=== PATIENT | male | born 1975 | race African-American/Black ===

== ENCOUNTER 2017-03-03 17:24 | Emergency (ER) | payer BC ==
[2017-03-03 17:27] VITALS: BP 156/93; BMI 27.3
[2017-03-03] MEDS ORDERED: XYLOCAINE 1 % (PLAIN) ONE (17:43)
--- NOTE | 2017-03-03 17:52 | DR.GENAD ---
HPI - PCP Primary Care Physician: ERA - Complaint/Symptoms Chief Complaint Doctors Comments: Agree with statement Chief Complaint:: PT C/O RT HAND 4TH DIGIT FINGER INFECTION AND PAIN. PT STATES IT HAS BEEN LIKE THIS FOR TWO DAYS. - Source History Provided: Patient - Mode of Arrival Mode of Arrival: Ambulatory - Timing Onset of Chief Complaint: 03/01/17 PMH - PMH Past Medical History: No Past Surgical History: Yes Surgical History: Abdominal Surgery - Family History History of Family Medical Conditions: Yes Family Medical History: Hypertension - Social History Does patient currently use any type of tobacco product: Yes Have you used tobacco products in the last 12 months: Yes Type of Tobacco Use: Cigarettes Does any household member use tobacco: Yes Alcohol Use: None Do you use any recreational Drugs:: No Lives With: Family Lives Where: Home - infectious screening In the last 2 months have you had wt loss of >10#?: NO Have you had fever, night sweats or hemotysis?: No Have you traveled outside the country in the last 6 months?: No Isolation: Standard ROS - Review of Systems Eyes: No Symptoms Reported ENTM: No Symptoms Reported Respiratoy: No Symptoms Reported Cardiovascular: No Symptoms Reported Gastrointestinal/Abdominal: No Symptoms Reported Genitourinary: No Symptoms Reported Neurological: No Symptoms Reported Musculoskeletal: Other (right hand 4th digit tender swollen) Integumentary: No Symptoms Reported Hematologic/Lymphatic: No Symptoms Reported Endocrine: No Symptoms Reported Psychiatric: No Symptoms Reported All Other Systems: Reviewed and Negative PE - Vital Signs Vitals: Temperature 98.2 F Pulse Rate 105 Respiratory Rate 20 Blood Pressure [Right Arm] 150/92 Blood Pressure 156/93 O2 Sat by Pulse Oximetry 96 - General Limitations: No Limitations General Appearance: Alert - Head Head Exam: Normal Inspection - Eyes Eye exam: Normal Appearance, PERRL, EOMI - ENT ENT Exam: Normal Exam External Ear Exam: Normal External Inspection TM/Canal Exam: Bilateral Normal Nose Exam: Normal Nose Exam Mouth Exam: Normal Inspection Throat Exam: Normal Inspection - Neck Neck Exam: Normal Inspection - Chest Chest Inspection: Normal Inspection - Respiratory Respiratory Exam: Normal Lung Sounds Bilat Respiratory Exam: Bilateral Clear to Auscultation - Cardiovascular Cardiovascular Exam: Regular Rate, Normal Rhythm - Abdominal Exam Abdominal Exam: Normal Inspection, Normal Bowel Sounds Abdominal Tenderness: negative: RUQ, RLQ, LUQ, LLQ, Epigastrium, Suprapubic, Diffuse, Mild, Moderate, Severe, Other - Extremities Extremities Exam: Other (left hand 4th digit with swelling of the distle DIP joing, tender fluctuant) - Back Back Exam: Normal Inspection - Neurologic Neurological Exam: Alert, Oriented X3, CN II-XII Intact - Psychiatric Psychiatric Exam: Normal Affect, Normal Mood - Skin Skin Exam: Warm, Dry, Intact Course - Treatment Treatment: I&D 4th digit obtaine ~2cc pus - Reevaluation 1st: Improved - Diagnosis Discharge Problem: Perionychia of finger Qualifiers: Laterality: right Qualified Code(s): L03.011 - Cellulitis of right finger - Discharge Plan Condition: Stable - Follow ups/Referrals Follow ups/Referrals: Clayton GIRARD [Primary Care Provider] - 3 days - Instructions
== END 2017-03-03 18:21 | disposition home or self-care (01) ==
LOC: ER 17:29
PROC: 0P9 Upper Bones, Drainage (ICD-10-PCS; principal; 2017-03-03)
DX: L03.011 Cellulitis of right finger (principal)
CPT/HCPCS: 10060; 99282; J2001

== ENCOUNTER → 2017-07-26 | Outpatient (CLI) | payer BC ==
--- NOTE | 2017-07-29 10:37 | RAD ---
HISTORY: Back pain Study: Lumbar spine series Comparison: none Findings: There is mild disc space narrowing throughout. There is moderate scoliotic curvature, convex to the l eft. The pedicles are intact. There are no pars defects seen. The bones are osteopenic. There surgica l clips along the left pelvis. IMPRESSION: Mild degenerative disc changes throughout and moderate scoliosis with no acute abnormality seen. Reported By:
== END | disposition home or self-care (01) ==
LOC: RAD 13:34
PROVIDERS: ATTEND Internal Medicine
DX: M54.5 Low back pain (principal); M51.36 Other intervertebral disc degeneration, lumbar region; M41.86 Other forms of scoliosis, lumbar region
CPT/HCPCS: 72110

== ENCOUNTER 2017-09-19 17:26 | Emergency (ER) | payer BC ==
[2017-09-19 17:46] VITALS: BMI 26.6
--- NOTE | 2017-09-19 18:17 | DR.CP ---
HPI - Time Seen Time seen: 17:49 - PCP Primary Care Physician: NFD - Complaint Chief Complaint Doctor Comments: History as stated by nurse. Patient in his usual state of health, close friend last week he was 43 years of age. Patient denies history of heart disease. He has hypertension but takes lisinopril infrequently. He smokes 0.5ppd.. Chief Complaint:: PT STATES " I HAD A FRIEND OF A HEART ATTACK AND I WANT TO BE CHECKED OUT".. PT C/O ABOUT ONE AND HALF HOURS AGO HE STARTED HAVING CHEST PAINS AND THAT HIS DAD HAS HAD STENTS PT DENIES ANY CARDIAC HX, OR STRESSORS". - Source History Provided: Patient - Mode of Arrival Mode of Arrival: Ambulatory - Timing Onset of Chief Complaint: 09/19/17 - Location Chest Pain Radiation Location: Left Arm, Left Shoulder - Associated Signs and Symptoms Associated Signs and Symptoms: Shortness of Breath PMH - PMH Past Medical History: No Past Medical History: Hypertension Past Surgical History: No Surgical History: Abdominal Surgery - Family History History of Family Medical Conditions: Yes Family Medical History: Hypertension Family Medical History Comment: CARDIAC STENTS ... - Social History Does patient currently use any type of tobacco product: Yes Have you used tobacco products in the last 12 months: Yes Type of Tobacco Use: Cigarettes How many years tobacco product used: 10 Does any household member use tobacco: No Alcohol Use: None Do you use any recreational Drugs:: No Lives With: Family Lives Where: Home - infectious screening In the last 2 months have you had wt loss of >10#?: NO Have you had fever, night sweats or hemotysis?: No Have you traveled outside the country in the last 6 months?: No Isolation: Standard ROS - Review of Systems Eyes: No Symptoms Reported ENTM: No Symptoms Reported Respiratoy: No Symptoms Reported Cardiovascular: No Symptoms Reported Gastrointestinal/Abdominal: No Symptoms Reported Genitourinary: No Symptoms Reported Neurological: No Symptoms Reported Musculoskeletal: See HPI Integumentary: No Symptoms Reported Hematologic/Lymphatic: No Symptoms Reported Endocrine: No Symptoms Reported Psychiatric: No Symptoms Reported All Other Systems: Reviewed and Negative PE - Vitals Vitals: Temperature 98.0 F Pulse Rate [Left Brachial] 73 Pulse Rate 98 Respiratory Rate 18 Blood Pressure [Right Arm] 145/101 Blood Pressure 156/100 O2 Sat by Pulse Oximetry 98 - General Limitations: No Limitations General Appearance: Alert, In No Apparent Distress - Head Head Exam: Normal Inspection, Atraumatic - Eyes Eye exam: Normal Appearance, PERRL, EOMI - ENT ENT Exam: Normal Exam - Chest Chest Inspection: Normal Inspection - Respiratory Respiratory Exam: Normal Lung Sounds Bilat Respiratory Exam: Bilateral Clear to Auscultation - Cardiovascular Cardiovascular Exam: Regular Rate, Normal Rhythm Pulse: Normal Edema: Normal - Abdominal Exam Abdominal Exam: Normal Inspection, Normal Bowel Sounds Abdominal Tenderness: negative: RUQ, RLQ, LUQ, LLQ, Epigastrium, Suprapubic, Diffuse, Mild, Moderate, Severe, Other - Extremities Extremities Exam: Normal Inspection, Full ROM - Back Back Exam: Normal Inspection, Full ROM - Neurologic Neurological Exam: Alert, Oriented X3, CN II-XII Intact - Psychiatric Psychiatric Exam: Normal Affect, Normal Mood - Skin Skin Exam: Warm, Dry Course - Reevaluation 1st: Unchanged - Education/Counseling Education/Counseling: Patient, Education, Counseling Educated On: Treatment, Diagnosis ROR - Labs Reviewed Result Diagrams: 09/19/17 18:12 09/19/17 18:12 Laboratory: WBC 7.2 X10^3/uL (3.6-10.0) 09/19/17 18:12 RBC 4.76 X10^6/uL (4.7-6.0) 09/19/17 18:12 Hgb 15.1 g/dL (13.5-18.0) 09/19/17 18:12 Hct 43.2 % (42.0-54.0) 09/19/17 18:12 MCV 90.8 fL (80.0-100.0) 09/19/17 18:12 MCH 31.8 pg (27.0-34.0) 09/19/17 18:12 MCHC 35.0 g/dL (33.0-35.0) 09/19/17 18:12 RDW 13.0 % (11.6-16.5) 09/19/17 18:12 Plt Count 243 X10^3/uL (150.0-450.0) 09/19/17 18:12 MPV 6.9 fL (7.4-11.0) L 09/19/17 18:12 Neut % 44.7 % (42.0-75.0) 09/19/17 18:12 Lymph % 47.5 % (21.0-51.0) 09/19/17 18:12 Ritchie % 5.7 % (0.0-13.0) 09/19/17 18:12 Eos % 1.1 % (0.9-2.9) 09/19/17 18:12 Baso % 1.0 % (0.2-1.0) 09/19/17 18:12 Neut # 3.2 x10^3/uL (2.2-4.8) 09/19/17 18:12 Lymph # 3.4 X10^3/uL (1.3-2.9) H 09/19/17 18:12 Ritchie # 0.4 x10^3/uL (0.3-0.8) 09/19/17 18:12 Eos # 0.1 x10^3/uL (0.0-0.2) 09/19/17 18:12 Baso # 0.1 X10^3/uL (0.0-0.1) 09/19/17 18:12 Absolute Nucleated RBC 0.1 /100WBC 09/19/17 18:12 INR Target Range - 09/19/17 18:12 INR 0.94 (0.8-1.3) 09/19/17 18:12 PTT 32.8 SECONDS (22.9-36.5) 09/19/17 18:12 PTT Comment - 09/19/17 18:12 D-Dimer < 100 ng/mL (0-400) 09/19/17 18:12 Sodium 140 mmol/L (136-145) 09/19/17 18:12 Corrected Sodium TNP 09/19/17 18:12 Potassium 3.6 mmol/L (3.5-5.1) 09/19/17 18:12 Chloride 105 mmol/L (98-107) 09/19/17 18:12 Carbon Dioxide 27.0 mmol/L (21-32) 09/19/17 18:12 BUN 19 mg/dL (7-18) H 09/19/17 18:12 Creatinine 1.32 mg/dL (0.70-1.30) H 09/19/17 18:12 Est GFR (MDRD) Af Amer > 60 (>60) 09/19/17 18:12 Est GFR (MDRD) Non-Af > 60 (>60) 09/19/17 18:12 Glucose 97 mg/dL (65-99) 09/19/17 18:12 Calcium 8.8 mg/dL (8.5-10.1) 09/19/17 18:12 Corrected Calcium TNP 09/19/17 18:12 Magnesium 2.1 mg/dL (1.7-2.9) 09/19/17 18:12 Total Bilirubin 0.30 mg/dL (0.2-1.0) 09/19/17 18:12 AST 37 Units/L (15-37) 09/19/17 18:12 ALT 41 Units/L (12-78) 09/19/17 18:12 Alkaline Phosphatase 57 Units/L (46-116) 09/19/17 18:12 Creatine Kinase 909 Units/L (39-308) H 09/19/17 18:12 CK-MB (CK-2) 3.0 ng/mL (0-4.0) 09/19/17 18:12 CK/CKMB % Calc 0.3 % (<4) 09/19/17 18:12 Troponin I < 0.02 ng/mL (0-1.5) 09/19/17 18:12 Total Protein 7.6 g/dL (6.4-8.2) 09/19/17 18:12 Albumin 4.0 g/dL (3.4-5.0) 09/19/17 18:12 Globulin 3.6 g/dL (2.5-4.5) 09/19/17 18:12 Albumin/Globulin Ratio 1.1 Ratio (1.1-2.1) 09/19/17 18:12 - XRAY XRAY Interpreted by: Radiologist (chest: negative) - Diagnosis Discharge Problem: Chest wall pain Hypertension Qualifiers: Hypertension type: essential hypertension Qualified Code(s): I10 - Essential ( primary) hypertension - Discharge Plan Condition: Stable - Follow ups/Referrals Follow ups/Referrals: NFD,None [Primary Care Provider] - 3 days - Instructions
[2017-09-19 18:21] LABS: BASOPHILS # (AUTO) 0.1 X10^3/uL (0.0-0.1); EOSINOPHILS # (AUTO) 0.1 x10^3/uL (0.0-0.2); EOSINOPHILS % (AUTO) 1.1 % (0.9-2.9); HEMATOCRIT 43.2 % (42.0-54.0); HEMOGLOBIN 15.1 g/dL (13.5-18.0); LYMPHOCYTES # (AUTO) 3.4 X10^3/uL (1.3-2.9); LYMPHOCYTES % (AUTO) 47.5 % (21.0-51.0); MEAN CORPUSCULAR HEMOGLOBIN 31.8 pg (27.0-34.0); MEAN CORPUSCULAR VOLUME 90.8 fL (80.0-100.0); MEAN PLATELET VOLUME 6.9 fL (7.4-11.0); MONOCYTES # (AUTO) 0.4 x10^3/uL (0.3-0.8); MONOCYTES % (AUTO) 5.7 % (0.0-13.0); NEUTROPHILS # (AUTO) 3.2 x10^3/uL (2.2-4.8); NEUTROPHILS % (AUTO) 44.7 % (42.0-75.0); PLATELET COUNT 243 X10^3/uL (150.0-450.0); RED BLOOD COUNT 4.76 X10^6/uL (4.7-6.0); WHITE BLOOD COUNT 7.2 X10^3/uL (3.6-10.0)
[2017-09-19 18:38] LABS: BLOOD UREA NITROGEN 19 mg/dL (7-18); CALCIUM 8.8 mg/dL (8.5-10.1); CHLORIDE 105 mmol/L (98-107); CREATININE 1.32 mg/dL (0.70-1.30); SODIUM 140 mmol/L (136-145); TROPONIN I < 0.02 ng/mL (0-1.5); eGFR BLACK RACES > 60 (>60); eGFR NON BLACK RACES > 60 (>60)
[2017-09-19 18:43] LABS: ALANINE AMINOTRANSFERASE 41 Units/L (12-78); ALKALINE PHOSPHATASE 57 Units/L (46-116); ASPARTATE AMINO TRANSFERASE 37 Units/L (15-37); CKMB % 0.3 % (<4); CREATINE KINASE 909 Units/L (39-308); TOTAL PROTEIN 7.6 g/dL (6.4-8.2)
--- NOTE | 2017-09-19 18:57 | RAD ---
Examination: Chest, PA and lateral views History: Chest pain left-sided Findings: Normal heart size with clear lungs and pleural spaces. Chest deformity secondary to moderat michelle severe thoracic scoliosis. No mediastinal or hilar lesion demonstrated. Impression: No active chest disease demonstrated. Thoracic scoliosis. Reported By:
[2017-09-19 19:27] LABS: BILIRUBIN,URINE NEGATIVE (NEGATIVE); BLOOD/HEMOGLOBIN,URINE NEGATIVE (NEGATIVE); GLUCOSE, URINE NEGATIVE (NEGATIVE); KETONES,URINE NEGATIVE (NEGATIVE); LEUKOCYTE ESTERASE ,URINE 1+ (NEGATIVE); NITRITES,URINE NEGATIVE (NEGATIVE); PROTEIN,URINE NEGATIVE (NEGATIVE); UROBILINOGEN,URINE 2+ (NORMAL)
[2017-09-19 19:42] LABS: AMORPHOUS SEDIMENT,UR 2+ /HPF (NEGATIVE); APPEARANCE,URINE HAZY (CLEAR); BACTERIA,URINE TRACE /HPF (NEGATIVE); COLOR,URINE YELLOW (YELLOW); RBC,URINE 0-2 /HPF (NEGATIVE); SQUAMOUS EPITHELIAL CELL,UR NEGATIVE /HPF (NEGATIVE)
[2017-09-19 19:56] VITALS: BP 135/91
== END 2017-09-19 19:59 | disposition home or self-care (01) ==
LOC: ER 17:33
DX: R07.89 Other chest pain (principal); I10 Essential (primary) hypertension
CPT/HCPCS: 36415; 71020; 80053; 80307; 81001; 82550; 82553; 83735; 84484; 85025; 85378; 85610; 85730; 93005; 93010; 99283; 99284; G0434